=== PATIENT | female | born 1940 | race Caucasian/White ===

== ENCOUNTER → 2017-04-24 | Outpatient (CLI) | payer OTHER ==
[~2017-04-24] MED LIST: BND25X PO; CALCTAB5 PO; FISHOIL PO; LISI-729 PO; PRLSR20 PO; SULF1TAB92 PO; VITAMIN D3 PO
== END | disposition home or self-care (01) ==
LOC: C.LABSPEC 16:56
PROVIDERS: ATTEND Urology
DX: R31.0 Gross hematuria (principal); N81.11 Cystocele, midline; N39.0 Urinary tract infection, site not specified; R33.9 Retention of urine, unspecified